=== PATIENT | female | born 1960 | race Caucasian/White ===

== ENCOUNTER 2019-11-25 09:25 | Outpatient (CLI) | payer BC, SELFPAY ==
--- NOTE | 2019-11-25 09:29 | MM_ITS ---
WS: [id number] BILATERAL DIGITAL SCREENING MAMMOGRAPHY WITH CAD CLINICAL INFORMATION: SCREENING HISTORY: Screening mammogram. No current complaints. COMPARISON: TECHNIQUE: Bilateral CC and MLO views. FINDINGS: Scattered fibroglandular densities bilaterally. No suspicious focal mass, asymmetry, calcifications, or architectural distortion. No evidence of malignancy. Lucent centered calcifications. MM/[place] [id number] IMPRESSION: BI-RADS: 2-Benign FOLLOW UP: 1 Year Follow-up Recommend return to annual screening mammography.
== END 2019-11-25 09:26 | disposition home or self-care (01) ==
LOC: RADSHAW 09:25
PROVIDERS: PCP Family Medicine; Visit Provider Family Medicine
DX: Z12.31 Encounter for screening mammogram for malignant neoplasm of breast (principal)
CPT/HCPCS: 77067

== ENCOUNTER 2020-07-15 14:01 | Emergency (ER) | payer BC, SELFPAY ==
[2020-07-15 14:07] VITALS: BP 144/91; PULSE 72; RESP 18; TEMP 36.3; O2SAT 97; BMI 38.7
--- NOTE | 2020-07-15 14:35 | USCV_ITS ---
Naa Padilla Age: 60 Gender: F : 1960 Exam Date: 07/15/2020 14:43 Ordering Phys: Annie Brar Technologist: Ginger Jacobo Exam Location: [facility] – [place]_ Indication: PAIN/SWELLING HISTORY: Lower extremity swelling. PROCEDURES: Venous duplex imaging was performed in only the left lower extremity. The following venous structures were evaluated: common femoral vein, profunda vein, proximal portion of the greater saphenous vein, superficial femoral vein, and the popliteal vein. In addition, the posterior tibial and peroneal trunk were evaluated. FINDINGS: Normal 2-D Doppler and augmentation and compressibility throughout the lower extremity venous structures. Additional imaging through the proximal calf veins also reveals no thrombus. Limited evaluation of the greater saphenous vein is patent with no thrombus. CONCLUSIONS No DVT left lower extremity. Dr. Bailey Pastor DO (Electronically Signed) Final Date: 15 July 2020 15:46 S
--- NOTE | 2020-07-15 16:20 | W.ED.EXTPRO ---
HPI - Extremity Problem General: Chief complaint: Extremity Problem,Nontraumatic Stated complaint: SENT BY DR MATOS/ROSEMARY BLOOD CLOT IN L LEG Time Seen by Provider: 07/15/20 16:20 Source: patient Mode of arrival: ambulatory Limitations: no limitations History of Present Illness: HPI Narrative: Patient is a 60-year-old female who presents to ED today with a complaint of left lower leg pain and swelling. Patient states symptoms have been present over the last few days. She has not had any injury or trauma. She did have a trip recently to [place]. She contacted her PCP who recommended she come to the ED for ultrasound to rule out a blood clot. Patient is not having any shortness of breath or chest pain. MD Complaint: extremity pain and extremity swelling Onset (ago): day(s) Pain Consistency: constant Location: left and lower extremity Quality: burning Radiation: none Relieving factors: nothing Exacerbating factors: nothing Associated symptoms: Reports no associated symptoms; Deny chest pain or fever(s) Context: recent travel Review of Systems Const: Denies: fever(s) Card: Denies: chest pain, irregular heart rhythm, syncope or pre-syncope Resp: Denies: dyspnea GI: Denies: nausea or vomiting Musc: Reports: extremity pain and extremity swelling Neuro: Denies: numbness in extremities, sensory changes or difficulty walking Physical Exam Const: COMMON NORMALS: no acute distress, patient oriented x3, no limitations and alert Extremity: GENERAL: Yes normal exam except as noted OTHER: TTP along lateral left lower leg; she feels like area is swollen but I do not appreciate any obvious swelling; shoes removed and she has small equal indentions bilaterally from the sandal straps; negative Jenny's; no erythema/warmth; DP/PT pulses intact Neuro: COMMON NORMALS: patient oriented x3, moves all extremities, no focal motor deficits, no sensory deficits noted and gait normal SENSORIUM/ORIENTATION: Yes alert Skin: COMMON NORMALS: no rashes or lesions noted GENERAL SKIN EXAM: no rashes or lesions noted Course Vital Signs: Vital signs: Vital Signs Temperature 97.3 F L 07/15/20 14:07 Pulse Rate 72 07/15/20 14:07 Respiratory Rate 18 07/15/20 14:07 Blood Pressure 144/91 07/15/20 14:07 Pulse Oximetry 97 07/15/20 14:07 MDM - Extremity (Nontraumatic) MDM Narrative: Medical decision making narrative: US venous negative. I don't feel any blood work is ultimately going to change my management. Recommend follow up with PCP. Imaging Data^: US venous: Radiologist's impression: [address] [place] [address] Ultrasound Report Signed Patient: Naa Padilla #: [id number] : 1960Acct#:[id number] Age/Sex: 60 / FADM Date: 07/15/20 Loc: ERRoom/Bed: Attending Dr: Ordering Provider/Ordering MD: Annie Brar Date of Service: 07/15/20 Procedure(s): [place] [id number] Accession Number(s): [id number] Report Number: [id number] Naa Padilla Age: 60 Gender: F : 1960 Exam Date: 07/15/2020 14:43 Ordering Phys: Annie Brar Technologist: Ginger Jacobo Exam Location: [facility] – [place] Indication: PAIN/SWELLING HISTORY: Lower extremity swelling. PROCEDURES: Venous duplex imaging was performed in only the left lower extremity. The following venous structures were evaluated: common femoral vein, profunda vein, proximal portion of the greater saphenous vein, superficial femoral vein, and the popliteal vein. In addition, the posterior tibial and peroneal trunk were evaluated. FINDINGS: Normal 2-D Doppler and augmentation and compressibility throughout the lower extremity venous structures. Additional imaging through the proximal calf veins also reveals no thrombus. Limited evaluation of the greater saphenous vein is patent with no thrombus. CONCLUSIONS No DVT left lower extremity. Dr. Bailey Pastor DO (Electronically Signed) Final Date: 15 July 2020 15:46 S Discharge Plan Discharge Patient Disposition: Home Clinical Impression: Leg pain, left Condition: Stable Discharge Orders: Discharge ED (Routine); Ordered 07/15/20 Ordered By: Annie Brar Referrals: Aziza Matos MD [Primary Care Provider] - Activity Restrictions/Additional Instructions: As we discussed, your venous ultrasound was negative today for a blood clot. You may try ice, heat, anti-inflammatories for your discomfort. If pain persists please follow-up with Dr. Matos. Hope you begin to feel better soon. Coding Level of Care Code ED Prison Classification Counselor for Zoya Lawrence
[2020-07-15 16:29] VITALS: BP 129/88; PULSE 68; RESP 17; O2SAT 96
== END 2020-07-15 16:31 | disposition home or self-care (01) ==
PROVIDERS: Emergency Provider Physician Assistant; PCP Family Medicine
DX: M79.605 Pain in left leg (principal)
CPT/HCPCS: 93971; 99282

== ENCOUNTER 2020-08-26 09:37 | Outpatient (CLI) | payer BC, SELFPAY ==
--- NOTE | 2020-08-26 | XR_ITS ---
WS: [id number] LEFT RIBS, MULTIPLE VIEWS WITH PA CHEST HISTORY: FALL, LEFT RIB PAIN COMPARISON: 04/13/2014 Lungs and mediastinum: Prior median sternotomy and CABG. Lungs are clear. No pulmonary contusion or p neumothorax. Mild atherosclerosis aorta. Ribs: No rib fractures or bone destruction identified. XR/XR ribs LT mn 3V w CXR1V [id number] IMPRESSION: No LEFT rib fractures identified.
== END 2020-08-26 09:38 | disposition home or self-care (01) ==
PROVIDERS: PCP Family Medicine; Visit Provider Nurse Practitioner Family
DX: R07.81 Pleurodynia (principal); W19.XXXA Unspecified fall, initial encounter
CPT/HCPCS: 71101

== ENCOUNTER 2020-11-26 14:09 | Outpatient (CLI) | payer BC, SELFPAY ==
--- NOTE | 2020-11-26 14:14 | MM_ITS ---
WS: [id number] BILATERAL SCREENING DIGITAL MAMMOGRAM WITH CAD HISTORY: SCREENING COMPARISON: 11/25/2019 and 11/08/2018 Bilateral CC and MLO views submitted. Computer aided detection analyzed. Breast composition: There are scattered areas of fibroglandular density. No suspicious masses, microc alcifications or architectural distortion. Benign calcifications in each breast. MM/[place] [id number] IMPRESSION: BI-RADS: 2-Benign FOLLOW UP: 1 Year Follow-up
== END 2020-11-26 14:10 | disposition home or self-care (01) ==
LOC: RADSHAW 14:13
PROVIDERS: PCP Family Medicine; Visit Provider Family Medicine
DX: Z12.31 Encounter for screening mammogram for malignant neoplasm of breast (principal)
CPT/HCPCS: 77067

== ENCOUNTER 2021-09-08 04:11 | Observation (INO) | payer BC, SELFPAY ==
[2021-09-08] VITALS (12 sets, daily range): BP systolic 100–146; BP diastolic 67–94; PULSE 68–156; RESP 14–22; TEMP 36.6–37.2; O2SAT 94–97
--- NOTE | 2021-09-08 04:17 | ED_ITS ---
HPI - Chest Pain General: Chief Complaint: Nausea/Vomiting/Diarrhea Stated Complaint: D/CP Time Seen by Provider: 09/08/21 04:17 History of Present Illness: Ms. Padilla is a 61-year-old lady without known cardiac history who presents to the emergency department due to chest discomfort and shortness of breath. She reports symptom onset was approximately 2 days ago initially when she had multiple episodes of nausea, vomiting, and diarrhea. She additionally endorses some shortness of breath, generalized weakness, and malaise. With exertion walking more than a few feet she becomes lightheaded as well. Symptoms have persisted since onset and are moderate in intensity at rest and become more severe with exertion. She has not had similar episodes in the past. No other specific changes in health, exacerbating, or alleviating factors identified. Onset (ago): day(s) Prior episodes: No Onset: during rest Pain location: substernal Severity: moderate Quality: aching Exacerbating factors: exertion Associated symptoms: Reports dyspnea, nausea and vomiting Review of Systems General: Reports: 10 or more systems reviewed and unremarkable except in HPI and below Resp: Reports: dyspnea GI: Reports: nausea and vomiting PFSH ED PFSH: Medical History History of migraine History of myasthenia gravis Surgical History History of abdominal hysterectomy History of appendectomy History of cholecystectomy Social History Smoking and tobacco status: never smoked Alcohol intake: never Physical Exam Const: COMMON NORMALS: alert GENERAL APPEARANCE: cooperative, well developed and ill appearing (Somewhat) HENMT: COMMON NORMALS: normocephalic and atraumatic HEAD & SCALP: normocephalic and atraumatic Eye: COMMON NORMALS: conjunctivae normal CONJUNCTIVA: Yes conjunctivae normal SCLERA: sclerae normal Neck/C-Spine: COMMON NORMALS: supple GENERAL: Yes trachea midline Resp: COMMON NORMALS: clear to auscultation bilaterally EFFORT & INSPECTION: Yes able to speak in complete sentences and Yes tachypneic AUSCULTATION: clear to auscultation bilaterally Cardio: RATE: tachycardic RHYTHM: abnormal rhythm irregularly irregular GI: COMMON NORMALS: Soft to palpation PALPATION: Yes Soft to palpation and No Tenderness to palpation present (GI) PERCUSSION: normal to percussion Extremity: GENERAL: Yes normal exam except as noted and No edema Neuro: COMMON NORMALS: moves all extremities SENSORIUM/ORIENTATION: Yes alert and No Orientation impaired Psych: COMMON NORMALS: mental status grossly normal and Normal thought process present THOUGHT PROCESS: Normal thought process present Course ED course: - Patient was seen and evaluated by me at bedside - Patient placed on cardiac monitors, IV access obtained - Initial evaluation notable for exam as above. Somewhat ill-appearing with mild tachypnea. A. fib with RVR. - IV fluid bolus ordered given clinical history of multiple episodes of diarrhea to ensure adequate volume resuscitation. Mild improvement in overall rate of A. fib from initially 150s to 170s down to more consistently 140s to 150s. Once 1 L bolus completed patient Cardizem ordered for rate control with drip. - Labs and xrays personally interpreted by me - Labs notable for no leukocytosis, mild hemoconcentration with hemoglobin 16.9. Metabolic panel with perhaps mild dehydration. Potassium normal and magnesium normal. Given typical recommendation of cardiology for potassium greater or equal to 4 for arrhythmia prevention potassium replenishment ordered. Initial troponin minimally elevated, BNP mildly elevated. - Imaging notable for no obvious lobar consolidation, there is elevation of left hemidiaphragm, no pneumothorax. - Upon serial reexamination after treatment the patient was somewhat improved - Based on patient history, evaluation, and testing as interpreted the most likely cause of the patient's condition is new onset atrial fibrillation with rapid ventricular response - The results of ED evaluation were discussed with the patient including plan for admission due to requirement for level of care not available if discharged to prevent significant worsening/deterioration. - Admitting service was contacted and Dr [] with [] agreed to admit the patient - Patient was admitted without further deterioration or significant events. Note: Click bubbles or prepopulated gill in note writing are used for assistance with data collection and billing and are inherently more limited than narrative and other text portions of this note. Please use narrative for additional clinical history and defer to narrative/free test for any case of contradictory information. If information appears in only free text or click bubble it should be considered present or absent as reported. Please contact note medical technical writer for clarifications of clinical information or contradictory information. MDM is a brief summary, contradictory or erroneous seeming information should be clarified and full note should be reviewed. Vital Signs: Vital signs: Vital Signs Temperature 98.9 F 09/08/21 11:55 Pulse Rate 72 09/08/21 15:35 Respiratory Rate 15 09/08/21 15:35 Blood Pressure 108/68 09/08/21 15:35 Pulse Oximetry 95 09/08/21 15:35 MDM - Chest Pain Medical Decision Making 61-year-old lady without cardiac history presenting with 2-day history of increasing shortness of breath, chest pressure, and generalized symptoms associated with GI illness. Patient found to have A. fib with RVR. Fluid bolus followed by Cardizem with Cardizem drip administered for rate control. Admitted for further cardiac evaluation. Medical Records I reviewed the patient's medical records. Lab Data I reviewed the patient's lab results. : 09/08/21 04:29 09/08/21 04:29 Radiology Impressions Chest X-Ray 09/08/21 04:27 IMPRESSION: No acute cardiopulmonary process. Laboratory Results WBC 4.7 10^3/uL (4.0-10.0) 09/08/21 04:29 RBC 5.73 10^6/uL (4.1-5.3) H 09/08/21 04:29 Hgb 16.9 g/dL (11.5-15.3) H 09/08/21 04:29 Hct 51.4 % (37.0-47.0) H 09/08/21 04:29 MCV 89.7 fl (81-99) 09/08/21 04:29 MCH 29.5 pg (28.0-34.0) 09/08/21 04:29 MCHC 32.9 g/dL (30.0-36.0) 09/08/21 04:29 RDW 13.0 % (12.1-15.1) 09/08/21 04:29 Plt Count 183 10^3/cmm (130-400) 09/08/21 04:29 MPV 11.2 fL (7.4-10.4) H 09/08/21 04:29 Neut % (Auto) 47.2 % 09/08/21 04:29 Lymph % (Auto) 35.6 % 09/08/21 04:29 [place] % (Auto) 14.2 % 09/08/21 04:29 Eos % (Auto) 2.4 % 09/08/21 04:29 Baso % (Auto) 0.2 % 09/08/21 04:29 Neut # (Auto) 2.20 10^3/uL (1.8-7.7) 09/08/21 04:29 Lymph # (Auto) 1.7 10^3/uL (0.8-4.8) 09/08/21 04:29 [place] # (Auto) 0.7 10^3/uL (0.2-0.9) 09/08/21 04:29 Eos # (Auto) 0.1 10^3/uL (0.0-0.8) 09/08/21 04:29 Baso # (Auto) 0.0 10^3/uL (0.0-0.1) 09/08/21 04:29 Nucleated RBC % (auto) 0 % 09/08/21 04:29 Nucleated RBCs # 0.0 /100WBC 09/08/21 04:29 Sodium 135 mmol/L (136-145) L 09/08/21 04:29 Potassium 3.6 mmol/L (3.5-5.1) 09/08/21 04:29 Chloride 101 mmol/L (98-107) 09/08/21 04:29 Carbon Dioxide 20 mmol/L (22-29) L 09/08/21 04:29 Anion Gap 17.6 (5-19) 09/08/21 04:29 BUN 21 mg/dL (8-23) 09/08/21 04:29 Creatinine 0.9 mg/dL (0.5-0.9) 09/08/21 04:29 GFR Calculation 63.7 mL/min (90-130) L 09/08/21 04:29 Glucose 110 mg/dL (65-115) 09/08/21 04:29 Calculated Osmolality 284 mOsm/kg (285-295) L 09/08/21 04:29 Lactate 1.3 mmol/L (0.5-2.2) 09/08/21 06:09 Calcium 8.7 mg/dL (8.5-10.5) 09/08/21 04:29 Magnesium 2.1 mg/dL (1.7-2.3) 09/08/21 04:29 Magnesium 2.1 mg/dL (1.7-2.3) 09/08/21 04:29 Total Bilirubin 0.2 mg/dL (0.15-1.2) 09/08/21 04:29 AST 17 U/L (0-32) 09/08/21 04:29 ALT 19 U/L (0-33) 09/08/21 04:29 Alkaline Phosphatase 137 IU/L (35-105) H 09/08/21 04:29 Troponin T Baseline 12 ng/L (0-10) H 09/08/21 04:29 Troponin T 120 Minute 11.68 ng/L (0-10) H 09/08/21 06:09 Delta Troponin T -0.32 ABS# (0-10) L 09/08/21 06:09 NT-Pro-B Natriuret Pep 329 pg/mL (0-125) H 09/08/21 04:29 Total Protein 7.2 g/dL (6.6-8.7) 09/08/21 04:29 Albumin 4.2 g/dL (3.5-5.2) 09/08/21 04:29 Globulin 3.0 g/dL (1.3-4.6) 09/08/21 04:29 TSH 3.00 uIU/mL (0.27-4.20) 09/08/21 04:29 TSH 3.02 uIU/mL (0.27-4.20) 09/08/21 04:29 Free T4 1.21 ng/dL (0.82-1.77) 09/08/21 04:29 Urine Color Yellow (Yellow) 09/08/21 05:45 Urine Appearance Sl hazy (CLEAR) 09/08/21 05:45 Urine pH 5 (5-7) 09/08/21 05:45 Ur Specific [place] 1.015 (1.005-1.030) 09/08/21 05:45 Urine Protein Neg (Negative) 09/08/21 05:45 Urine Glucose (UA) Norm (Normal) 09/08/21 05:45 Urine Ketones 1+ (Negative) H 09/08/21 05:45 Urine Blood Neg (Negative) 09/08/21 05:45 Urine Nitrate Negative (Negative) 09/08/21 05:45 Urine Bilirubin Neg (Negative) 09/08/21 05:45 Urine Urobilinogen Norm mg/dL (Negative) 09/08/21 05:45 Ur Leukocyte Esterase Negative (Negative) 09/08/21 05:45 Discharge Plan Discharge Patient Disposition: Admitted As Inpatient Admit Provider: Rosita Bellamy Clinical Impression: New onset a-fib, Atrial fibrillation with RVR, Nausea vomiting and diarrhea Condition: Stable Discharge Diet: Cardiac Discharge Activity: Resume usual activity Coding Level of Care Code ED Medical Equipment Repairer for Chg Fwd Exam Comprehensive
--- NOTE | 2021-09-08 04:27 | XRR_ITS ---
PROCEDURE INFORMATION: Exam: XR Chest Exam date and time: 09/08/2021 4:43 AM Age: 61 years old Clinical indication: Pain; Shortness of breath; Prior surgery; Surgery type: Thymectomy; Patient HX: C/O SOB with palpitations and diaphoresis. Afib with rvr on monitor. History of thymoma with myasthenia gravis. TECHNIQUE: Imaging protocol: XR of the chest. Views: 1 view. Total images: 1 COMPARISON: CR XR ribs LT mn 3V w CXR1V [id number] 08/26/2020 10:08 AM FINDINGS: Lungs: Unremarkable. No consolidation. Pleural spaces: Unremarkable. No pleural effusion. No pneumothorax. Heart/Mediastinum: Unremarkable. No cardiomegaly. Diaphragm: There is nonspecific elevation of the left hemidiaphragm. Bones/joints: Osseous structures are unchanged from the prior exam. Other findings: Stable postsurgical changes. XR/XR chest 1V portable [id number] IMPRESSION: No acute cardiopulmonary process.
--- NOTE | 2021-09-08 04:27 | ECG_ITS ---
[facility] Test Date: 2021-09-08 Pat Name: Naa Padilla Department: Room: 102 Gender: Female Agricultural Chemicals Inspector: : 1960 Requested By: Colin Gonzalez Order Number: [id number] Kia MD: Phillip Painting M.D. Measurements Intervals [place] Rate: 68 P: 67 [place]: 175 QRS: 55 QRSD: 84 T: 76 QT: 387 QTc: 414 Interpretive Statements SINUS RHYTHM Compared to ECG 09/08/2021 06:35:55 Atrial fibrillation no longer present T-wave abnormality no longer present Electronically Signed On 09-08-2021 17:18:55 CDT by Phillip Painting M.D. [id number]
[2021-09-08] MEDS: sodium chloride 0.9% 1,000 ML 999 ML IV (04:32)
[2021-09-08 04:41] LABS: Basophils % 0.2 %; Eosinophils # 0.1 10^3/uL (0.0-0.8); Eosinophils % 2.4 %; Hematocrit 51.4 % (37.0-47.0); Hemoglobin 16.9 g/dL (11.5-15.3); Lymphocytes # 1.7 10^3/uL (0.8-4.8); Lymphocytes % 35.6 %; Mean Corpuscular HGB Conc 32.9 g/dL (30.0-36.0); Mean Corpuscular Hemoglobin 29.5 pg (28.0-34.0); Mean Corpuscular Volume 89.7 fl (81-99); Mean Platelet Volume 11.2 fL (7.4-10.4); Monocytes # 0.7 10^3/uL (0.2-0.9); Monocytes % 14.2 %; Neutrophils % 47.2 %; Nucleated Red Blood Cells % 0 %; Platelet Count 183 10^3/cmm (130-400); Red Blood Count 5.73 10^6/uL (4.1-5.3); White Blood Count 4.7 10^3/uL (4.0-10.0)
[2021-09-08 05:03] LABS: Troponin(5th) Baseline 12 ng/L (0-10)
[2021-09-08 05:11] LABS: Alanine Aminotransferase 19 U/L (0-33); Albumin Level 4.2 g/dL (3.5-5.2); Alkaline Phosphatase 137 IU/L (35-105); Anion Gap 17.6 (5-19); Aspartate Amino Transferase 17 U/L (0-32); Blood Urea Nitrogen 21 mg/dL (8-23); Calcium 8.7 mg/dL (8.5-10.5); Carbon Dioxide 20 mmol/L (22-29); Chloride 101 mmol/L (98-107); Glomerular Filtration Rate 63.7 mL/min (90-130); Glucose 110 mg/dL (65-115); Magnesium 2.1 mg/dL (1.7-2.3); NT Pro B Type Natriuretic Pept 329 pg/mL (0-125); Osmolality Calculated 284 mOsm/kg (285-295); Potassium 3.6 mmol/L (3.5-5.1); Sodium 135 mmol/L (136-145); Thyroid Stimulating Hormone 3.02 uIU/mL (0.27-4.20); Total Bilirubin 0.2 mg/dL (0.15-1.2); Total Protein 7.2 g/dL (6.6-8.7)
[2021-09-08] MEDS: dilTIAZem 5 mg/mL SDV 5 mL 20 MG IVP (05:18)
[2021-09-08] MEDS: potassium chloride oral liq 20 mEq/15 mL UDC 40 MEQ PO (05:31)
[2021-09-08 05:56] LABS: Add Urine Microscopic? NO; Charge for UA Resulting for Rev
[2021-09-08 06:02] LABS: Bilirubin Urine Neg (Negative); Blood Urine Neg (Negative); Glucose Urine UA Norm (Normal); Ketones Urine 1+ (Negative); Leukocyte Esterase Urine Negative (Negative); Nitrate Urine Negative (Negative); Protein Urine Neg (Negative); Specific Gravity, Urine 1.015 (1.005-1.030); Urine Appearance SL Hazy (CLEAR); Urine Color Yellow (Yellow); Urobilinogen Urine Norm (Negative); pH Urine 5 (5-7)
[2021-09-08] MEDS: ondansetron 2 mg/ML SDV 2 mL 4 MG IVP (06:14)
[2021-09-08] MEDS: lidocaine 2% viscous 15 ML, aluminum-mag hydrox-simethicon 30 ML, sucralfate oral liq 1 GM PO (06:14)
--- NOTE | 2021-09-08 06:25 | PM.HP ---
Providers/Chief Complaint Primary Care Provider: Aziza Oconnor MD Chief Complaint: D/CP History of Present Illness the patient is a 61-year-old female who initially presented with chief complaint of rapid heart rate however upon further clarification she presents with chief complaint of palpitations. She states her symptoms started approximate 10 PM on September 07, 2021. She states she was at home looking for Tylenol when it was of sudden onset. She admits to dyspnea, lightheadedness, dizziness, diaphoresis, palpitations, as previously mentioned. She denies chest pain however she admits to bilateral arm pain however she attributes this to the possibility of her history of arthritis. She denies a sensation of rapid heartbeat or sensation ureter heartbeat. She denies peripheral edema. Patient has no known cardiac history. She presents for further evaluation Review of Systems General: Reports: 10 or more systems reviewed and unremarkable except in HPI and below Medications/Allergies Allergies Allergy/AdvReac Type Severity Reaction Status Date / Time codeine Allergy ADR-Chest Verified 07/15/20 14:11 Pain PFSH Acute PFSH: Medical History History of migraine History of myasthenia gravis Surgical History History of abdominal hysterectomy History of appendectomy History of cholecystectomy Social History Smoking and tobacco status: never smoked Alcohol intake: never Vitals/I&O/Wt Last Vital Signs Temp 97.9 F 09/08/21 04:16 Pulse 138 H 09/08/21 05:05 Resp 15 09/08/21 05:05 BP 111/67 09/08/21 05:05 Pulse Ox 97 09/08/21 05:05 09/07/21 09/07/21 09/08/21 14:59 22:59 06:59 Intake Total 1003 / 1003 Balance 1003 / 1003 Physical Exam Narrative: General: -Alert -No acute distress -No dyspnea -No tachypnea Head: -Atraumatic -Normocephalic Eyes: -Pupils equally round and reactive to light and accommodation -Extraocular muscles intact Neurological: -Cranial nerves II-XII intact Neck: -No jugular venous distention -No thyromegaly -No cervical lymphadenopathy Heart: -Regular rate -Regular rhythm -No murmurs -No gallops -No rubs Lungs: -No wheeze -No rhonchi -No rales ? Abdomen: -Normal bowel sounds in all four quadrants -No rebound -No guarding -No tenderness Extremities: -2/4 pulse in all four extremities -No clubbing -No cyanosis -No edema -No calf tenderness present bilaterally -Negative Jenny?s sign bilaterally Musculoskeletal: -5/5 bilateral upper extremity strength -5/5 bilateral lower extremity strength -Sensorium of bilateral upper extremities are equal and intact -Sensorium of bilateral lower extremities are equal and intact ? Additional Details / Additional Findings / Exceptions / Miscellaneous: Data : 09/08/21 04:29 09/08/21 04:29 A&P Assessment and plan (1) New onset a-fib: Status: Acute Plan atrial fibrillation, new onset. Will monitor patient on telemetry and checks her cardiac enzymes. Check TSH, free T4, magnesium level. Echo cardiac pending. Will recheck EKG on the morning of September 09, 2021. Radiology report for chest x-ray?portable pending. Lovenox 100 Mill grams subcu tensely twice a day plus IV Cardizem drip per protocol which we will attempt to wean as she was started on Cardizem CD to 140 Mill grams by mouth daily History of migraine Myasthenia gravis Arthritis Erythrocytosis. Will monitor her hemoglobin intermittently. IV normal saline at 100 ML's per hour Obesity. The patient becomes regarding lifestyle medication DVT prophylaxis. Lovenox 100 Mill grams subcu tensely every 12 hours Attestations Medical Necessity Statement*: the patient's anticipated length of stay is greater than 2 midnights for evaluation of her new onset of atrial fibrillation Coding Level of Care Code Acute Synthetic Chemist for [facility] Melinda Diagnoses New onset a-fib I48.91
--- NOTE | 2021-09-08 06:27 | ECG_ITS ---
[facility] Test Date: 2021-09-08 Pat Name: Naa Padilla Department: Room: 102 Gender: Female Supervisor Ovens: : 1960 Requested By: Colin Gonzalez Order Number: [id number] Kia MD: Phillip Painting M.D. Measurements Intervals [place] Rate: 120 P: [place]: QRS: 31 QRSD: 89 T: 69 QT: 299 QTc: 424 Interpretive Statements ATRIAL FIBRILLATION WITH RAPID VENTRICULAR RESPONSE NONSPECIFIC ST & T-WAVE ABNORMALITY Compared to ECG 09/08/2021 04:20:36 No significant changes Electronically Signed On 09-08-2021 17:20:50 CDT by Phillip Painting M.D. [id number]
[2021-09-08 06:35] LABS: Lactate (Lactic Acid level) 1.3 mmol/L (0.5-2.2); Troponin 5 2HR 11.68 ng/L (0-10)
[2021-09-08 06:36] LABS: Troponin 5 2HR Delta -0.32 ABS# (0-10)
[2021-09-08 06:51] LABS: Free T4 Free Thyroxine 1.21 ng/dL (0.82-1.77); Magnesium 2.1 mg/dL (1.7-2.3)
--- NOTE | 2021-09-08 07:43 | USCV_ITS ---
Naa Padilla Age: 61 Gender: F : 1960 Exam Date: 09/08/2021 08:34 Ordering Phys: Rosita Bellamy DO Technologist: Forrest Hubbard [place] [facility] [place]: AFIB BP: 122 / 70 HR: 62 Rhythm: Sinus Technical Quality: Adequate MEASUREMENTS (Male / Female) Normal Values 2D ECHO LV Diastolic Diameter PLAX 2.9 cm 4.2 - 5.9 / 3.9 - 5.3 cm LV Systolic Diameter PLAX 2.0 cm IVS Diastolic Thickness 1.3 cm 0.6 - 1.0 / 0.6 - 0.9 cm IVS Systolic Thickness 1.9 cm LVPW Diastolic Thickness 1.3 cm 0.6 - 1.0 / 0.6 - 0.9 cm LVPW Systolic Thickness 1.4 cm LVOT Diameter 2.0 cm LV Ejection Fraction 2D Teich 60.5 % LV Ejection Fraction MOD 2C 60.6 % LV Ejection Fraction 2C AL 61.4 % LA Diameter 3.3 cm LA Width 2.6 cm LA Height 4.8 cm RA Width 3.9 cm RA Height 3.8 cm Aorta at Sinotubular Diameter 2.0 cm IVC Diameter 1.7 cm M-MODE Aortic Annulus Diameter 2.9 cm MV E Point Septal Separation 0.4 cm DOPPLER AV Peak Velocity 127.0 cm/s LVOT Peak Velocity 93.0 cm/s AV Area Cont Eq vti 2.5 cm squared AV Area Cont Eq pk 2.3 cm squared MV Peak Velocity 80.0 cm/s MV Area PHT 3.7 cm squared Mitral E to A Ratio 1.0 MV E' Velocity 38.5 cm/s Mitral E to MV E' Ratio 8.6 Mitral E to LV E' Lateral Ratio 8.6 Mitral E to LV E' Septal Ratio 8.6 TR Peak Velocity 242.6 cm/s TR Peak Gradient 23.5 mmHg TR Mean Velocity 201.5 cm/s TR Mean Gradient 17.1 mmHg TR Velocity Time Integral 71.3 cm Right Atrial Pressure 3.0 mmHg Pulmonary Artery Systolic Pressu 26.5 mmHg RV Acceleration Time 0.1 s RV Ejection Time 0.3 s RV AcT/ET 0.2 FINDINGS Left Ventricle Normal left ventricular size, systolic function and wall thickness, with no regional wall motion abnormalities. Left ventricular ejection fraction is estimated at 60 %. Normal diastolic function. Right Ventricle Normal right ventricular size and systolic function. Right ventricular systolic pressure 25 mmHg. Right Atrium Normal right atrial size. Left Atrium Normal left atrial size. Mitral Valve Mild mitral annular calcification. Mildly thickened mitral valve. No mitral valve stenosis. Trace mitral valve regurgitation. Aortic Valve Aortic valve not well visualized. No aortic valve stenosis. No aortic valve regurgitation. Tricuspid Valve Structurally normal tricuspid valve. No tricuspid valve stenosis. Trace tricuspid valve regurgitation. Pulmonic Valve Pulmonic valve not well visualized. Pericardium No pericardial effusion. Aorta Normal-sized aortic root . IVC Normal IVC dimension with >50% respiratory change of the inferior vena cava. CONCLUSIONS 1. Normal left ventricular size, systolic function and wall thickness, with no regional wall motion abnormalities. Left ventricular ejection fraction is estimated at 60 %. Normal diastolic function. 2. Normal right ventricular size and systolic function. 3. No significant valvular abnormality. 4. Normal pulmonary artery pressure. 5. No prior similar studies to compare Yumiko Marcano MD (Electronically Signed) Final Date: 08 Sep 2021 12:27 S
--- NOTE | 2021-09-08 07:50 | PC.NURSE ---
Pt admitted to [facility] from ED. Cardizem gtt at 7.5 mg/hr. When pt attached to monitoring, Sinus rhythm noted. NO pain, nausea per patient. at bedside. Room and call light orientation provided.
[2021-09-08] MEDS: enoxaparin 100 mg/mL Syringe SUBCUT (08:33)
[2021-09-08] MEDS: dilTIAZem ER (24HR) 240 mg Capsule PO (08:34)
--- NOTE | 2021-09-08 10:23 | PC.CHAP ---
Pastoral Care Encounter/Spiritual Assessment Type of Contact [] Declined wire photo operator visit [] Patient/Family/Request visit [] Outpatient visit [] Follow-up visit [] Physician referral [] Code/Alert [x] Routine visit [] Staff referral [] Actively dying [] Patient sleeping [] Family support [] [] Out of room [] Palliative care [] [x] Receiving care in room [] Pre-surgical visit [] Trauma [] Long length of stay [] ICU visit [] Other: Relational/Emotional Strength [x] Patient feels connected with others/family/visitors/staff [] Distress [] Loneliness/isolation [] Abandonment Spirituality of Patient [x] Person of Ramona [] Attends Scientologist of their Ramona [x] Believes in Prayer [] Reads Bible or Jainism materials [] There are Spiritual issues to be addressed Nickel Plater Interventions [x] Prayer [x] Active listening [x] Non-anxious presence [x] Spiritual/emotional support [x] Crisis/trauma care [x] Spiritual counseling [] Bereavement support [] Provided bereavement packet [] Provided Bible/devotional materials [] Provided toy/stuffed animal, coloring book to patient or family member [] Provided Communion [] Anointing/[place] [] Salvation [x] Completed spiritual assessment [] Other: Impact on Illness or Injury [] Angry [] Fearful [] Anxious [] Often cries [] Exhaustion [] Unable to work [] Unable to attend temple [] Unable to walk/stand [] Unable to read [] Unable to drive [] Unable to eat/drink [] Unable to sleep [] Unable to be with family [] Patient intubated [] Other: Summary retirewd had tests waiting on doctors report has a good attitude well go home Time spent with patient 10 mins
--- NOTE | 2021-09-08 10:27 | ECG_ITS ---
[facility] Test Date: 2021-09-08 Pat Name: Naa Padilla Department: Room: 102 Gender: Female Clerical Support Specialist: : 1960 Requested By: Colin Gonzalez Order Number: [id number] Kia MD: Phillip Painting M.D. Measurements Intervals [place] Rate: 169 P: CO: QRS: 30 QRSD: 71 T: 66 QT: 257 QTc: 431 Interpretive Statements ATRIAL FIBRILLATION WITH RAPID VENTRICULAR RESPONSE NONSPECIFIC ST & T-WAVE ABNORMALITY Compared to ECG 06/12/2017 20:56:36 Sinus rhythm no longer present T-wave abnormality still present Electronically Signed On 09-08-2021 17:20:57 CDT by Phillip Painting M.D. [id number]
--- NOTE | 2021-09-08 10:53 | P.DS_ITS ---
Discharge Providers Date of Admission: 09/08/21 07:43 Date of Discharge: September 08, 2021 Attending Provider at Admission: Rosita Bellamy DO Attending Provider at Discharge: Gurpreet Gambino MD Primary Care Provider: Aziza Oconnor MD Diagnoses at Discharge Discharge Diagnosis (1) New onset a-fib: Status: Acute Reason for Visit Reason for Visit: D/CP Hospital Course Hospital Course This is a 61-year-old female obesity, hypertension who presents to [facility] due to chief complaint of rapid heart rate Patient was admitted to [facility] for atrial fibrillation with rapid ventricular response, managed with Cardizem drip, therapeutic Lovenox, she converted to normal sinus rhythm. Her TSH within normal limits, electrolytes within normal limits, magnesium within normal limits, baseline troponin 12, her echocardiogram showed Patient will be discharged on Cardizem to 240 mg once daily, with Eliquis given her [id number] score of 2, advised to monitor for bloody or black stools if so go to the emergency room. Follow-up with cardiology and primary care in 1 week Physical Exam Const: COMMON NORMALS: no acute distress and patient oriented x3 Resp: COMMON NORMALS: normal respiratory effort, No retractions, No use of accessory muscles and clear to auscultation bilaterally AUSCULTATION: clear to auscultation bilaterally Cardio: COMMON NORMALS: regular rate, regular rhythm, S1 normal heart sound present and S2 normal heart sound present RATE: regular rate RHYTHM: regular rhythm HEART SOUNDS: S1 normal heart sound present and S2 normal heart sound present GI: COMMON NORMALS: Normal to inspection, nondistended, normoactive bowel sounds present, Soft to palpation and non-tender PALPATION: Yes Soft to palpation Extremity: COMMON NORMALS: no pedal edema Neuro: COMMON NORMALS: patient oriented x3 Psych: COMMON NORMALS: mental status grossly normal Discharge Data Studies Completed and Pending Completed Studies During Hospitalization Category Date Time Status XR chest 1V portable [id number] Urgent Exams 09/08/21 04:27 Completed Pending at discharge Category Date Time Status CMP [Comprehensive Metabolic Panel] Routine Lab 09/09/21 06:00 Ordered Troponin(5th) 6 hour. Timed Lab 09/08/21 10:30 Received CV. echo complete* [id number] Routine Ultrasound 09/08/21 07:43 Taken Radiology Impressions Chest X-Ray 09/08/21 04:27 IMPRESSION: No acute cardiopulmonary process. Laboratory Results WBC 4.7 10^3/uL (4.0-10.0) 09/08/21 04:29 RBC 5.73 10^6/uL (4.1-5.3) H 09/08/21 04:29 Hgb 16.9 g/dL (11.5-15.3) H 09/08/21 04:29 Hct 51.4 % (37.0-47.0) H 09/08/21 04:29 MCV 89.7 fl (81-99) 09/08/21 04:29 MCH 29.5 pg (28.0-34.0) 09/08/21 04:29 MCHC 32.9 g/dL (30.0-36.0) 09/08/21 04:29 RDW 13.0 % (12.1-15.1) 09/08/21 04:29 Plt Count 183 10^3/cmm (130-400) 09/08/21 04:29 MPV 11.2 fL (7.4-10.4) H 09/08/21 04:29 Neut % (Auto) 47.2 % 09/08/21 04:29 Lymph % (Auto) 35.6 % 09/08/21 04:29 [place] % (Auto) 14.2 % 09/08/21 04:29 Eos % (Auto) 2.4 % 09/08/21 04:29 Baso % (Auto) 0.2 % 09/08/21 04:29 Neut # (Auto) 2.20 10^3/uL (1.8-7.7) 09/08/21 04:29 Lymph # (Auto) 1.7 10^3/uL (0.8-4.8) 09/08/21 04:29 [place] # (Auto) 0.7 10^3/uL (0.2-0.9) 09/08/21 04:29 Eos # (Auto) 0.1 10^3/uL (0.0-0.8) 09/08/21 04:29 Baso # (Auto) 0.0 10^3/uL (0.0-0.1) 09/08/21 04:29 Nucleated RBC % (auto) 0 % 09/08/21 04:29 Nucleated RBCs # 0.0 /100WBC 09/08/21 04:29 Sodium 135 mmol/L (136-145) L 09/08/21 04:29 Potassium 3.6 mmol/L (3.5-5.1) 09/08/21 04:29 Chloride 101 mmol/L (98-107) 09/08/21 04:29 Carbon Dioxide 20 mmol/L (22-29) L 09/08/21 04:29 Anion Gap 17.6 (5-19) 09/08/21 04:29 BUN 21 mg/dL (8-23) 09/08/21 04:29 Creatinine 0.9 mg/dL (0.5-0.9) 09/08/21 04:29 GFR Calculation 63.7 mL/min (90-130) L 09/08/21 04:29 Glucose 110 mg/dL (65-115) 09/08/21 04:29 Calculated Osmolality 284 mOsm/kg (285-295) L 09/08/21 04:29 Lactate 1.3 mmol/L (0.5-2.2) 09/08/21 06:09 Calcium 8.7 mg/dL (8.5-10.5) 09/08/21 04:29 Magnesium 2.1 mg/dL (1.7-2.3) 09/08/21 04:29 Magnesium 2.1 mg/dL (1.7-2.3) 09/08/21 04:29 Total Bilirubin 0.2 mg/dL (0.15-1.2) 09/08/21 04:29 AST 17 U/L (0-32) 09/08/21 04:29 ALT 19 U/L (0-33) 09/08/21 04:29 Alkaline Phosphatase 137 IU/L (35-105) H 09/08/21 04:29 Troponin T Baseline 12 ng/L (0-10) H 09/08/21 04:29 Troponin T 120 Minute 11.68 ng/L (0-10) H 09/08/21 06:09 Delta Troponin T -0.32 ABS# (0-10) L 09/08/21 06:09 NT-Pro-B Natriuret Pep 329 pg/mL (0-125) H 09/08/21 04:29 Total Protein 7.2 g/dL (6.6-8.7) 09/08/21 04:29 Albumin 4.2 g/dL (3.5-5.2) 09/08/21 04:29 Globulin 3.0 g/dL (1.3-4.6) 09/08/21 04:29 TSH 3.00 uIU/mL (0.27-4.20) 09/08/21 04:29 TSH 3.02 uIU/mL (0.27-4.20) 09/08/21 04:29 Free T4 1.21 ng/dL (0.82-1.77) 09/08/21 04:29 Urine Color Yellow (Yellow) 09/08/21 05:45 Urine Appearance Sl hazy (CLEAR) 09/08/21 05:45 Urine pH 5 (5-7) 09/08/21 05:45 Ur Specific [place] 1.015 (1.005-1.030) 09/08/21 05:45 Urine Protein Neg (Negative) 09/08/21 05:45 Urine Glucose (UA) Norm (Normal) 09/08/21 05:45 Urine Ketones 1+ (Negative) H 09/08/21 05:45 Urine Blood Neg (Negative) 09/08/21 05:45 Urine Nitrate Negative (Negative) 09/08/21 05:45 Urine Bilirubin Neg (Negative) 09/08/21 05:45 Urine Urobilinogen Norm mg/dL (Negative) 09/08/21 05:45 Ur Leukocyte Esterase Negative (Negative) 09/08/21 05:45 Vitals Last Vital Signs Temp 97.9 F 09/08/21 04:16 Pulse 70 09/08/21 08:15 Resp 19 H 09/08/21 07:46 BP 122/70 09/08/21 08:15 Pulse Ox 96 09/08/21 08:00 Discharge Plan Discharge Patient Disposition: Home Condition: Stable Prescriptions: New diltiazem HCl 240 mg Capsule,Extended Release 24hr 240 mg PO DAILY 30 Days Qty: 30 0RF Eliquis 5 mg tablet 5 mg PO BID 30 Days Qty: 60 0RF Continued lisinopril 20 mg Tablet 20 mg PO DAILY 0RF Discontinued propranolol 60 mg Tablet 60 mg PO BID 0RF amlodipine 5 mg Tablet 2.5 mg PO DAILY 0RF Discharge Orders: Discharge Order (Routine); Ordered 09/08/21 Ordered By: Gurpreet Gambino Referrals: Aziza Oconnor MD [Primary Care Provider] - 09/20/21 9:15 am (You have a hospital followup with Dr. Oconnor on September 20 at 9:15am) Phillip Painting M.D [Physician] - 09/20/21 12:15 pm (You have a cardiology followup for your afib at [facility] [place] with Dr. Painting on September 20 at 12:15pm) Discharge Diet: Cardiac Discharge Activity: Resume usual activity Patient Instructions: Diltiazem (By mouth) (Cardizem, Cardizem CD, Cardizem LA, Cardizem SR), Apixaban (By mouth) (Eliquis), GI Bleeding, A-fib (Atrial Fibrillation) (DC), Rectal Bleeding (DC), Opioid Safety Activity Restrictions/Additional Instructions: - For atrial fibrillation please take Cardizem -Hold amlodipine, propanolol these medications in addition to Cardizem can cause lightheadedness and dizziness -Monitor for lightheadedness or dizziness if so come back to the emergency room -If any worsening chest palpitations come back to emergency room for your atrial fibrillation I have discharged you on Eliquis 5 mg twice daily, this is a blood thinner, if you develop bloody or black stools, or feel lightheaded or dizzy or have significant trauma go to the emergency room - Discharge Attestations Time Spent in Discharge Care*: less than 30 min Quality Metrics Clinical Quality Measures [ No reported AMI, CVA or VTE this stay] Coding Level of Care Code Acute Chg FW DC note Exam Detailed Diagnoses New onset a-fib I48.91
[2021-09-08 10:57] LABS: Troponin 5 6HR 12.31 ng/L (0-10)
[2021-09-08 10:58] LABS: Troponin 5 6HR Delta 0.31 ng/L (0-12)
--- NOTE | 2021-09-08 15:35 | PC.NURSE ---
Discharge instructions provided. Follow-up appts. medications and conditions discussed.
== END 2021-09-08 15:41 | disposition home or self-care (01) ==
LOC: ER 06:04 → CSU 07:49
PROVIDERS: Admitting Provider Internal Medicine; Emergency Provider Emergency Medicine; PCP Family Medicine; Visit Provider Family Medicine
DX: I48.91 Unspecified atrial fibrillation (principal); E66.9 Obesity, unspecified; I10 Essential (primary) hypertension; G70.00 Myasthenia gravis without (acute) exacerbation
CPT/HCPCS: 36415; 71045; 80053; 81003; 83605; 83735; 83880; 84439; 84443; 84484; 85025; 93005; 93306; 96365; 96372; 96375; 99285; G0378; J1650; J2405; J3490; J7030

== ENCOUNTER 2022-03-21 14:11 | Outpatient (CLI) | payer OTHER, SELFPAY ==
--- NOTE | 2022-03-21 14:22 | MM_ITS ---
WS: [id number] BILATERAL 3D TOMOSYNTHESIS DIGITAL SCREENING MAMMOGRAPHY WITH CAD CLINICAL INFORMATION: SCREENING HISTORY: Screening mammogram. No current complaints. COMPARISON: November 26, 2020 TECHNIQUE: Bilateral CC and MLO views. FINDINGS: Scattered fibroglandular densities bilaterally. No suspicious focal mass, asymmetry, calcifications, or architectural distortion. No evidence of malignancy. A few incidental punctate calcifications. MM/[place] [id number] IMPRESSION: BI-RADS: 2-Benign FOLLOW UP: 1 Year Follow-up Recommend return to annual screening mammography.
== END 2022-03-21 14:12 | disposition home or self-care (01) ==
PROVIDERS: PCP Family Medicine; Visit Provider Family Medicine
DX: Z12.31 Encounter for screening mammogram for malignant neoplasm of breast (principal)
CPT/HCPCS: 77063; 77067

== ENCOUNTER 2022-06-13 12:48 | Outpatient (CLI) | payer OTHER, SELFPAY ==
--- NOTE | 2022-06-13 12:58 | US_ITS ---
WS: [id number] TRANSABDOMINAL PELVIC AND TRANSVAGINAL PELVIC ULTRASOUND HISTORY: PELVIC PERINEAL PAIN COMPARISON: None available. Status post hysterectomy. No midline or adnexal masses are identified. The urinary bladder is only mi nimally distended. Free fluid: No free fluid. US/US pelv w/transvag [id number] IMPRESSION: Negative pelvic ultrasound status post hysterectomy. No pelvic masses are ident ified.
== END 2022-06-13 12:49 | disposition home or self-care (01) ==
LOC: RAD 12:48
PROVIDERS: PCP Family Medicine; Visit Provider Family Medicine
DX: R10.2 Pelvic and perineal pain (principal)
CPT/HCPCS: 76830; 76856

== ENCOUNTER 2023-04-02 09:52 | Outpatient (CLI) | payer OTHER, SELFPAY ==
--- NOTE | 2023-04-02 10:01 | MM_ITS ---
WS: [id number] VIEWS: MLO and CC views both breasts. 3D digital tomosynthesis is also included in this exam. Comparison made with prior exam of 08/25/2010, 08/29/2011, 10/08/2012, 10/10/2013, 10/09/2014, 10/17/2016, 02/2018, 11/08/2018, 11/25/2019, 11/26/2020, 03/21/2022.. Findings: There was no sign of mass, architectural distortion or suspicious calcification in either breast. The re are scattered areas of fibroglandular density Impression: MM/[place] [id number] BI-RADS: 2-Benign finding. FOLLOW-UP: 1 Year Follow-up This mammogram was also analyzed by the Computer Aided Detection System [employer] Project Lead.
== END 2023-04-02 09:53 | disposition home or self-care (01) ==
LOC: RAD 09:52
PROVIDERS: PCP Family Medicine; Visit Provider Family Medicine
DX: Z12.31 Encounter for screening mammogram for malignant neoplasm of breast (principal)
CPT/HCPCS: 77063; 77067

== ENCOUNTER 2023-07-10 10:00 | Outpatient (CLI) | payer OTHER, SELFPAY ==
--- NOTE | 2023-07-10 10:07 | CT_ITS ---
WS: [id number] CT ABDOMEN WITH CONTRAST HISTORY: UNSPECIFIED ABDOMINAL PAIN Contiguous single phase 5 mm axial imaging performed to the abdomen. Oral contrast has been provided. Coronal and sagittal reformats are submitted. All CT scans at [facility] use at least one of these dose optimization techniques: automated exposure control; mA and/or kV adjustment per patient size (includes targeted exams where dose is matched to clinical indication); or iterative reconstruct ion. IV CONTRAST: Omnipaque 350; 100 mL IV. Oral contrast: Yes. DLP: 603.37 mGy.cm COMPARISON: 03/30/2009 Lower thorax: Lung bases are clear. Heart is normal size. No hiatal hernia. Liver/biliary system: Normal size with no intrahepatic dilatation. Gallbladder: Prior cholecystectomy. Common bile duct is mildly prominent to 8 mm which is probably ph ysiologic related to the cholecystectomy. Pancreas: Normal size pancreas and pancreatic duct. No adjacent inflammation. Spleen: Normal size spleen. No mass or infarct. Adrenal glands: Normal. Right kidney: Too small to characterize 4 mm hypodensity lower pole. No solid mass or obstruction. Left kidney: Normal. Aorta: Mild atherosclerosis with no aneurysm. Lymphadenopathy: None. Free fluid: None. GI tract: As visualized negative. Abdominal wall: Unremarkable abdominal wall. No hernia. Visualized osseous structures: Unremarkable. IMPRESSION: 1. Prior cholecystectomy. 2. No acute abnormality within the abdomen. 3. Mild atherosclerosis aorta.
[2023-07-10] MEDS: iohexol 350 mg/mL 500 mL Btl (per mL) PO (10:27)
[2023-07-10] MEDS: iohexol 350 mg/mL 500 mL Btl (per mL) IV (11:07)
== END 2023-07-10 10:01 | disposition home or self-care (01) ==
LOC: RAD 10:01
PROVIDERS: PCP Family Medicine; Visit Provider Family Medicine
DX: R10.9 Unspecified abdominal pain (principal); Z90.49 Acquired absence of other specified parts of digestive tract
CPT/HCPCS: 74160; Q9967

== ENCOUNTER 2024-04-04 14:46 | Outpatient (CLI) | payer OTHER, SELFPAY ==
--- NOTE | 2024-04-04 14:50 | MM_ITS ---
WS: [id number] BILATERAL 3D TOMOSYNTHESIS DIGITAL SCREENING MAMMOGRAPHY WITH CAD CLINICAL INFORMATION: SCREENING HISTORY: Screening mammogram. No current complaints. COMPARISON: 2022 TECHNIQUE: Bilateral CC and MLO views. FINDINGS: Scattered fibroglandular densities bilaterally. No suspicious focal mass, asymmetry, calcifications, or architectural distortion. No evidence of malignancy. Benign calcifications RIGHT breast. MM/MM scr tomosynthesis [id number] IMPRESSION: DENSITY: There are scattered areas of fibroglandular density. BI-RADS: 2 - Benign. FOLLOW UP: 1 Year Follow-up Recommend return to annual screening mammography.
== END 2024-04-04 14:47 | disposition home or self-care (01) ==
LOC: RAD 14:49
PROVIDERS: PCP Family Medicine; Visit Provider Family Medicine
DX: Z12.31 Encounter for screening mammogram for malignant neoplasm of breast (principal); R92.323 Mammographic fibroglandular density, bilateral breasts; R92.1 Mammographic calcification found on diagnostic imaging of breast
CPT/HCPCS: 77063; 77067